=== PATIENT | female | born 1950 | race Caucasian/White ===

== ENCOUNTER 2018-11-24 18:25 | Emergency (ER) | payer MEDICARE, OTHER ==
[~2018-11-24] VITALS: Ht 154.9 cm; Wt 54.0 kg
[2018-11-24 18:36] VITALS: BP 131/87
--- NOTE | 2018-11-24 18:36 | NUR ---
CAME IN FOR LEFT LOWER EXTREMITY EDEMA "FEELING UNCOMFORTABLE RATER THAN PAIN", TOTAL KNEE REPLACEMENT JUNE 2018. TO ER BED 2, HOOKED TO MONITOR, PROVIDED W WARM BLANKET, AWAITING MD EVALUATION
--- NOTE | 2018-11-24 18:38 | NUR ---
DR MURO AT BEDSIDE
--- NOTE | 2018-11-24 19:18 | NUR ---
report given to michael ordoñez for juan
== END 2018-11-24 21:12 | disposition home or self-care (01) ==
LOC: ER 18:26
DX: R60.0 Localized edema (principal); Z98.890 Other specified postprocedural states; Z88.8 Allergy status to other drugs, medicaments and biological substances; Z88.6 Allergy status to analgesic agent; Z91.040 Latex allergy status; Z60.2 Problems related to living alone; Z96.652 Presence of left artificial knee joint
CPT/HCPCS: 93971-TC